=== PATIENT | male | born 1930 | race Caucasian/White ===

== ENCOUNTER 2019-03-18 01:30 | Inpatient (IN) | payer MEDICARE, MEDICAID ==
[~2019-03-18] VITALS: Ht 172.7 cm; Wt 65.8 kg
[~2019-03-18 01:30] MED LIST: MECL-109 PO; METO100T16 PO
[2019-03-18] MEDS ORDERED: SODIUM CHLORIDE 0.9% 1,000 ML IV ONE (02:26)
[2019-03-18] MEDS ORDERED: ONDANSETRON 4MG ODT PO ONE (02:30)
[2019-03-18 02:48] LABS: CLARITY URINE CLEAR (CLEAR); COLOR URINE YELLOW (YELLOW); KETONES URINE NEGATIVE (NEGATIVE); LEUKOCYTE ESTERASE URINE NEGATIVE (NEGATIVE); NITRITE URINE NEGATIVE (NEGATIVE); OCCULT BLOOD URINE NEGATIVE (NEGATIVE); PH URINE 7.5 (4.5-8.0); PROTEIN URINE NEGATIVE (NEGATIVE); SPECIFIC GRAVITY URINE 1.009 (1.005-1.030); UROBILINOGEN URINE 0.2 E.U./dL (0.2-1.0)
[2019-03-18 02:48] LABS: BASOPHILS % 0.2 % (0.0-2.0); EOSINOPHILS % 0.4 % (0.0-5.0); HEMATOCRIT. 31.2 % (42.0-52.0); LYMPHOCYTES % 18.9 % (20.0-50.0); MEAN CORPUSCULAR HEMOGLOBIN 36.4 pg (28.0-32.0); MEAN CORPUSCULAR VOLUME 103.4 fL (80.0-94.0); MEAN PLATELET VOLUME 8.9 fl (7.4-10.4); MONOCYTES % 12.3 % (2.0-8.0); NEUTROPHILS % 68.2 % (40.0-76.0); PLATELET 117 x1000/uL (130-400); RED BLOOD CELL COUNT 3.02 mill/uL (4.7-6.1); RED CELL DISTRIBUTION WIDTH 15.7 % (11.6-14.6)
[2019-03-18 02:53] LABS: CHLORIDE 101 mEq/L (98-107)
[2019-03-18] MEDS ORDERED: AZITHROMYCIN 500 MG in DEXT 5% WATER 250 ML IV NR (04:15)
[2019-03-18] MEDS ORDERED: CEFTRIAXONE 1 G PREMIX 50 ML IV NR (04:15)
[2019-03-18] MEDS ORDERED: ACETAMINOPHEN 325MG TABLET PO PRN (07:00)
[2019-03-18] MEDS ORDERED: NA PHOS,M-B/NA PHOS,DI-BA ENEMA 118ML PR PRN (07:00)
[2019-03-18] MEDS ORDERED: GUAIFENESIN 200MG/10ML SUGAR FREE UDC PO PRN (07:00)
[2019-03-18] MEDS ORDERED: ONDANSETRON HCL 4MG/2ML INJ IV PRN (07:00)
[2019-03-18] MEDS ORDERED: MAGNESIUM/ALUMINUM HYDROXIDE/SIMETHICONE 30ML UDC PO PRN (07:00)
[2019-03-18] MEDS ORDERED: LORAZEPAM 2MG/ML CPJ IV PRN (07:00)
[2019-03-18] MEDS ORDERED: CLONIDINE 0.1MG TABLET PO PRN (07:00)
[2019-03-18 08:40] VITALS: BP 148/45
[2019-03-18 09:42] VITALS: BP 148/45
[2019-03-18 12:00] VITALS: BP 161/51
[2019-03-18] MEDS: SODIUM CHLORIDE 0.45% 1,000 ML IV SCH (13:06)
[2019-03-18] MEDS: LEVOFLOXACIN 500MG PREMIX 100 ML IV SCH (13:07)
[2019-03-18] MEDS ORDERED: DEXTROSE 50% WATER 50ML SYRINGE IV PRN (15:15)
[2019-03-18 15:51] VITALS: BP 159/49
[2019-03-18] MEDS ORDERED: FOLI-43 MT (16:01)
[2019-03-18] MEDS ORDERED: REPA1TAB5 MT (16:01)
[2019-03-18] MEDS ORDERED: ROSU5TAB MT (16:01)
[2019-03-18] MEDS ORDERED: LINA5TAB MT (16:05)
[2019-03-18] MEDS ORDERED: TAMS-11 MT (16:05)
[2019-03-18] MEDS ORDERED: ASPI-1079 PO (16:05)
[2019-03-18] MEDS ORDERED: DIGO125T82 MT (16:05)
[2019-03-18] MEDS ORDERED: AMI2 MT (16:05)
[2019-03-18] MEDS ORDERED: MECL-127 MT (16:05)
[2019-03-18] MEDS: HYDROCODONE/ACETAMINOPHEN 5/325MG TABLET PO PRN ×2 (16:11→20:14)
[2019-03-18] MEDS: INSULIN LISPRO 100 UNITS/ML SUBCUT SCH ×2 (17:18→21:00)
[2019-03-18] MEDS: BLOOD SUGAR DIAGNOSTIC STRIP TEST SCH ×2 (17:18→21:00)
[2019-03-18 20:00] VITALS: BP 143/52
[2019-03-19] VITALS: BP 138/70
[2019-03-19 04:00] VITALS: BP 142/45
[2019-03-19] MEDS: HYDROCODONE/ACETAMINOPHEN 5/325MG TABLET PO PRN ×3 (05:42→17:07)
[2019-03-19] MEDS: SODIUM CHLORIDE 0.45% 1,000 ML IV SCH ×2 (05:42→21:04)
[2019-03-19 06:02] LABS: CHLORIDE 106 mEq/L (98-107)
[2019-03-19] MEDS: INSULIN LISPRO 100 UNITS/ML SUBCUT SCH ×4 (07:24→21:00)
[2019-03-19] MEDS: BLOOD SUGAR DIAGNOSTIC STRIP TEST SCH ×4 (07:24→20:46)
[2019-03-19 08:00] VITALS: BP 117/57
[2019-03-19 08:39] LABS: BASOPHILS % 0.7 % (0.0-2.0); EOSINOPHILS % 1.7 % (0.0-5.0); HEMATOCRIT. 29.1 % (42.0-52.0); LYMPHOCYTES % 21.1 % (20.0-50.0); MEAN CORPUSCULAR HEMOGLOBIN 35.3 pg (28.0-32.0); MEAN CORPUSCULAR VOLUME 102.3 fL (80.0-94.0); MONOCYTES % 11.8 % (2.0-8.0); NEUTROPHILS % 64.7 % (40.0-76.0); PLATELET 105 x1000/uL (130-400); RED BLOOD CELL COUNT 2.84 mill/uL (4.7-6.1); RED CELL DISTRIBUTION WIDTH 15.4 % (11.6-14.6)
[2019-03-19] MEDS: LEVOFLOXACIN 500MG PREMIX 100 ML IV SCH (09:32)
[2019-03-19 12:00] VITALS: BP 144/59
[2019-03-19 16:00] VITALS: BP 139/48
[2019-03-19 20:00] VITALS: BP 164/51
[2019-03-20] VITALS (7 sets, daily range): BP systolic 121–149; BP diastolic 38–95
[2019-03-20] MEDS: BLOOD SUGAR DIAGNOSTIC STRIP TEST SCH ×4 (05:33→21:00)
[2019-03-20] MEDS: INSULIN LISPRO 100 UNITS/ML SUBCUT SCH ×4 (05:35→21:00)
[2019-03-20] MEDS: HYDROCODONE/ACETAMINOPHEN 5/325MG TABLET PO PRN ×3 (05:36→19:32)
[2019-03-20] MEDS: LEVOFLOXACIN 250MG PREMIX 50 ML IV SCH (10:43)
[2019-03-20] MEDS: SODIUM CHLORIDE 0.45% 1,000 ML IV SCH (10:43)
[2019-03-20] MEDS: DOCUSATE SODIUM 100MG CAPSULE PO PRN (13:29)
[2019-03-21] VITALS: BP 142/50
[2019-03-21] MEDS: SODIUM CHLORIDE 0.45% 1,000 ML IV SCH (03:40)
[2019-03-21 04:00] VITALS: BP 139/45
[2019-03-21] MEDS: HYDROCODONE/ACETAMINOPHEN 5/325MG TABLET PO PRN ×2 (04:51→18:52)
[2019-03-21] MEDS: BLOOD SUGAR DIAGNOSTIC STRIP TEST SCH ×4 (05:42→20:43)
[2019-03-21] MEDS: INSULIN LISPRO 100 UNITS/ML SUBCUT SCH ×4 (06:25→20:43)
[2019-03-21 08:00] VITALS: BP 137/50
[2019-03-21] MEDS: LEVOFLOXACIN 250MG PREMIX 50 ML IV SCH (10:22)
[2019-03-21] MEDS: DOCUSATE SODIUM 100MG CAPSULE PO PRN ×2 (10:22→18:52)
[2019-03-21 12:00] VITALS: BP 142/46
[2019-03-21 16:21] VITALS: BP 146/47
[2019-03-21 20:00] VITALS: BP 152/50
[2019-03-22] VITALS: BP 147/50
[2019-03-22 04:00] VITALS: BP 131/46
[2019-03-22] MEDS: BLOOD SUGAR DIAGNOSTIC STRIP TEST SCH ×4 (05:53→20:36)
[2019-03-22] MEDS: INSULIN LISPRO 100 UNITS/ML SUBCUT SCH ×4 (05:58→20:36)
[2019-03-22] MEDS: SODIUM CHLORIDE 0.45% 1,000 ML IV SCH ×2 (05:58→20:26)
[2019-03-22 08:00] VITALS: BP 141/45
[2019-03-22] MEDS: HYDROCODONE/ACETAMINOPHEN 5/325MG TABLET PO PRN ×2 (08:43→15:32)
[2019-03-22] MEDS: LEVOFLOXACIN 250MG TABLET PO SCH (10:06)
[2019-03-22] MEDS: DOCUSATE SODIUM 100MG CAPSULE PO PRN (10:45)
[2019-03-22] MEDS ORDERED: MAGNESIUM HYDROXIDE 400MG/5ML 30ML UDC PO PRN (11:30)
[2019-03-22 12:00] VITALS: BP 161/48
[2019-03-22] MEDS ORDERED: LACTULOSE 20G/30ML UDC PO NR (12:00)
[2019-03-22 16:00] VITALS: BP 156/50
[2019-03-22 19:32] VITALS: BP 148/49
[2019-03-23 00:30] VITALS: BP 146/55
[2019-03-23 03:59] VITALS: BP 129/45
[2019-03-23] MEDS: BLOOD SUGAR DIAGNOSTIC STRIP TEST SCH ×2 (05:00→12:20)
[2019-03-23] MEDS: SODIUM CHLORIDE 0.45% 1,000 ML IV SCH (05:03)
[2019-03-23] MEDS: INSULIN LISPRO 100 UNITS/ML SUBCUT SCH ×2 (05:07→12:20)
[2019-03-23 06:00] VITALS: BP 140/59
[2019-03-23 08:00] VITALS: BP 143/50
[2019-03-23] MEDS ORDERED: HYDROCODONE/ACETAMINOPHEN 5/325MG TABLET PO PRN (10:00)
[2019-03-23] MEDS: LEVOFLOXACIN 250MG TABLET PO SCH (10:16)
[2019-03-23 12:00] VITALS: BP 120/49
[2019-03-23 15:06] VITALS: BP 120/49
== END 2019-03-23 15:50 | DRG 552 ==
LOC: ER 01:30 → 8WST 04:48 → EDBEDREQTM 04:51 → EDBEDREQ 04:51 → ENRESERV 06:57 → 8WST 09:04
PROVIDERS: ADMIT Hospitalist; ATTEND Hospitalist
DX: S32.049A Unspecified fracture of fourth lumbar vertebra, initial encounter for closed fracture (principal); E44.1 Mild protein-calorie malnutrition; E87.1 Hypo-osmolality and hyponatremia; N39.0 Urinary tract infection, site not specified; E11.9 Type 2 diabetes mellitus without complications; I10 Essential (primary) hypertension; R29.6 Repeated falls; B95.5 Unspecified streptococcus as the cause of diseases classified elsewhere; K59.00 Constipation, unspecified; W18.30XA Fall on same level, unspecified, initial encounter; Y93.89 Activity, other specified; Y92.098 Other place in other non-institutional residence as the place of occurrence of the external cause; Z95.0 Presence of cardiac pacemaker; Z68.22 Body mass index [BMI] 22.0-22.9, adult; Y99.8 Other external cause status
CPT/HCPCS: 36415; 71045; 72128; 72131; 72192; 82962; 83605; 84484; 87077; 87186; 93005; 93970; 96361; 96365; 96367; 97110; 97162; 97167; 97530; 97535; 97760; 99285; J0456; J0696; J1956; J7030; J7042; J7060; Q0162

== ENCOUNTER 2019-03-23 16:00 | Inpatient (IN) | payer MEDICARE, MEDICAID ==
[~2019-03-23] VITALS: Ht 172.7 cm; Wt 65.8 kg
[~2019-03-23 16:00] MED LIST changes: +AMI2 MT; +ASPI-1079 PO; +DIGO125T82 MT; +FOLI-43 MT; +LINA5TAB MT; +REPA1TAB5 MT; +ROSU5TAB MT; +TAMS-11 MT
[2019-03-23] MEDS ORDERED: MAGNESIUM/ALUMINUM HYDROXIDE/SIMETHICONE 30ML UDC PO PRN (16:30)
[2019-03-23] MEDS ORDERED: DEXTROSE 50% WATER 50ML SYRINGE IV PRN (16:30)
[2019-03-23] MEDS ORDERED: CLONIDINE 0.1MG TABLET PO PRN (16:30)
[2019-03-23] MEDS ORDERED: ACETAMINOPHEN 325MG TABLET PO PRN (16:30)
[2019-03-23] MEDS ORDERED: MAGNESIUM HYDROXIDE 400MG/5ML 30ML UDC PO PRN (16:30)
[2019-03-23] MEDS ORDERED: ONDANSETRON HCL 4MG/2ML INJ IV PRN (16:30)
[2019-03-23] MEDS ORDERED: SODIUM CHLORIDE 0.9% 1,000 ML IV SCH (16:30)
[2019-03-23] MEDS ORDERED: NA PHOS,M-B/NA PHOS,DI-BA ENEMA 118ML PR PRN (16:30)
[2019-03-23] MEDS: INSULIN LISPRO 100 UNITS/ML SUBCUT SCH ×2 (17:00→21:56)
[2019-03-23] MEDS: HYDROCODONE/ACETAMINOPHEN 5/325MG TABLET PO PRN (17:37)
[2019-03-23] MEDS: BLOOD SUGAR DIAGNOSTIC STRIP TEST SCH ×2 (17:38→20:22)
[2019-03-23 18:05] VITALS: BP 135/60
[2019-03-23 20:00] VITALS: BP 120/66
[2019-03-23] MEDS: SODIUM CHLORIDE 0.45% 1,000 ML IV SCH (20:22)
[2019-03-24] MEDS: INSULIN LISPRO 100 UNITS/ML SUBCUT SCH ×4 (06:10→20:32)
[2019-03-24] MEDS: BLOOD SUGAR DIAGNOSTIC STRIP TEST SCH ×4 (06:10→20:32)
[2019-03-24] MEDS: HYDROCODONE/ACETAMINOPHEN 5/325MG TABLET PO PRN ×2 (06:14→09:57)
[2019-03-24 08:00] VITALS: BP 148/86
[2019-03-24] MEDS: LEVOFLOXACIN 250MG TABLET PO SCH (11:27)
[2019-03-24] MEDS ORDERED: BISACODYL 5MG TABLET PO PRN (14:00)
[2019-03-24 14:20] VITALS: BP 137/51
[2019-03-24] MEDS: HYDROCODONE/ACETAMINOPHEN 10/325MG TABLET PO PRN (14:26)
[2019-03-24] MEDS: SODIUM CHLORIDE 0.45% 1,000 ML IV SCH (17:22)
[2019-03-24 20:00] VITALS: BP 118/44
[2019-03-25] MEDS: BLOOD SUGAR DIAGNOSTIC STRIP TEST SCH ×4 (06:02→21:37)
[2019-03-25] MEDS: HYDROCODONE/ACETAMINOPHEN 5/325MG TABLET PO PRN (06:02)
[2019-03-25] MEDS: SODIUM CHLORIDE 0.45% 1,000 ML IV SCH (06:03)
[2019-03-25] MEDS: GUAIFENESIN 200MG/10ML SUGAR FREE UDC PO PRN ×2 (06:07→21:40)
[2019-03-25] MEDS: INSULIN LISPRO 100 UNITS/ML SUBCUT SCH ×4 (06:09→21:00)
[2019-03-25 07:00] VITALS: BP 115/47
[2019-03-25] MEDS: HYDROCODONE/ACETAMINOPHEN 10/325MG TABLET PO PRN ×2 (08:29→16:19)
[2019-03-25] MEDS: LEVOFLOXACIN 250MG TABLET PO SCH (11:01)
[2019-03-25 20:00] VITALS: BP 116/80
[2019-03-25] MEDS: METOPROLOL TARTRATE 25MG TABLET PO SCH (21:37)
[2019-03-26] MEDS: GUAIFENESIN 200MG/10ML SUGAR FREE UDC PO PRN (06:47)
[2019-03-26] MEDS: BLOOD SUGAR DIAGNOSTIC STRIP TEST SCH ×4 (06:47→20:13)
[2019-03-26] MEDS: INSULIN LISPRO 100 UNITS/ML SUBCUT SCH ×4 (06:47→20:13)
[2019-03-26 08:00] VITALS: BP 142/51
[2019-03-26] MEDS: HYDROCODONE/ACETAMINOPHEN 5/325MG TABLET PO PRN (09:10)
[2019-03-26] MEDS: METOPROLOL TARTRATE 25MG TABLET PO SCH ×2 (09:10→20:13)
[2019-03-26 20:00] VITALS: BP 133/48
[2019-03-27 05:50] LABS: CHLORIDE 103 mEq/L (98-107)
[2019-03-27] MEDS: BLOOD SUGAR DIAGNOSTIC STRIP TEST SCH ×4 (06:36→20:16)
[2019-03-27] MEDS: GUAIFENESIN 200MG/10ML SUGAR FREE UDC PO PRN (06:37)
[2019-03-27] MEDS: HYDROCODONE/ACETAMINOPHEN 5/325MG TABLET PO PRN ×2 (06:42→11:10)
[2019-03-27 07:35] LABS: BASOPHILS % 2.6 % (0.0-2.0); EOSINOPHILS % 2.1 % (0.0-5.0); HEMATOCRIT. 30.7 % (42.0-52.0); HEMOGLOBIN. 10.7 g/dL (14.0-18.0); LYMPHOCYTES % 26.1 % (20.0-50.0); MEAN CORPUSCULAR VOLUME 100.6 fL (80.0-94.0); MEAN PLATELET VOLUME 8.4 fl (7.4-10.4); MONOCYTES % 13.7 % (2.0-8.0); NEUTROPHILS % 55.5 % (40.0-76.0); PLATELET 172 x1000/uL (130-400); RED BLOOD CELL COUNT 3.05 mill/uL (4.7-6.1); RED CELL DISTRIBUTION WIDTH 15.7 % (11.6-14.6)
[2019-03-27 07:45] VITALS: BP 139/50
[2019-03-27] MEDS: INSULIN LISPRO 100 UNITS/ML SUBCUT SCH ×4 (08:12→20:16)
[2019-03-27] MEDS: METOPROLOL TARTRATE 25MG TABLET PO SCH ×2 (08:18→20:16)
[2019-03-27] MEDS: ENOXAPARIN 40MG/0.4ML SYR SUBCUT SCH (11:13)
[2019-03-27] MEDS: DOCUSATE SODIUM 100MG CAPSULE PO PRN (12:55)
[2019-03-27 20:00] VITALS: BP 147/58
[2019-03-28] MEDS: GUAIFENESIN 200MG/10ML SUGAR FREE UDC PO PRN (03:32)
[2019-03-28] MEDS: INSULIN LISPRO 100 UNITS/ML SUBCUT SCH ×4 (06:05→21:00)
[2019-03-28] MEDS: BLOOD SUGAR DIAGNOSTIC STRIP TEST SCH ×4 (06:05→21:19)
[2019-03-28 08:01] VITALS: BP 138/56
[2019-03-28] MEDS: METOPROLOL TARTRATE 25MG TABLET PO SCH ×2 (08:20→22:22)
[2019-03-28] MEDS: ENOXAPARIN 40MG/0.4ML SYR SUBCUT SCH (08:20)
[2019-03-28 20:00] VITALS: BP 139/55
[2019-03-28] MEDS: HYDROCODONE/ACETAMINOPHEN 5/325MG TABLET PO PRN (21:13)
[2019-03-29] MEDS: BLOOD SUGAR DIAGNOSTIC STRIP TEST SCH ×4 (06:28→21:22)
[2019-03-29] MEDS: INSULIN LISPRO 100 UNITS/ML SUBCUT SCH ×4 (06:29→21:00)
[2019-03-29 07:00] VITALS: BP 123/51
[2019-03-29] MEDS: DOCUSATE SODIUM 100MG CAPSULE PO PRN (08:19)
[2019-03-29] MEDS: METOPROLOL TARTRATE 25MG TABLET PO SCH ×2 (08:19→21:23)
[2019-03-29] MEDS: HYDROCODONE/ACETAMINOPHEN 10/325MG TABLET PO PRN ×2 (08:19→13:42)
[2019-03-29] MEDS: ENOXAPARIN 40MG/0.4ML SYR SUBCUT SCH (08:20)
[2019-03-29] MEDS ORDERED: HYDROCODONE/ACETAMINOPHEN 10/325MG TABLET PO PRN (15:00)
[2019-03-29 20:00] VITALS: BP 121/51
[2019-03-30] MEDS: HYDROCODONE/ACETAMINOPHEN 5/325MG TABLET PO PRN (03:52)
[2019-03-30] MEDS: BLOOD SUGAR DIAGNOSTIC STRIP TEST SCH ×4 (06:07→21:00)
[2019-03-30] MEDS: INSULIN LISPRO 100 UNITS/ML SUBCUT SCH ×4 (06:53→21:00)
[2019-03-30 08:09] VITALS: BP 116/49
[2019-03-30] MEDS: ENOXAPARIN 40MG/0.4ML SYR SUBCUT SCH (10:09)
[2019-03-30] MEDS: METOPROLOL TARTRATE 25MG TABLET PO SCH ×2 (10:09→21:00)
[2019-03-30 20:00] VITALS: BP 114/52
[2019-03-31] MEDS: BLOOD SUGAR DIAGNOSTIC STRIP TEST SCH ×4 (06:31→21:32)
[2019-03-31] MEDS: INSULIN LISPRO 100 UNITS/ML SUBCUT SCH ×4 (06:31→21:00)
[2019-03-31] MEDS: HYDROCODONE/ACETAMINOPHEN 5/325MG TABLET PO PRN ×2 (06:43→14:31)
[2019-03-31 08:00] VITALS: BP 113/51
[2019-03-31] MEDS: ENOXAPARIN 40MG/0.4ML SYR SUBCUT SCH (08:22)
[2019-03-31] MEDS: METOPROLOL TARTRATE 25MG TABLET PO SCH ×2 (09:00→21:25)
[2019-03-31] MEDS ORDERED: LACTULOSE 20G/30ML UDC PO PRN (15:00)
[2019-03-31 20:00] VITALS: BP 124/53
[2019-04-01] MEDS: INSULIN LISPRO 100 UNITS/ML SUBCUT SCH ×4 (06:15→20:41)
[2019-04-01] MEDS: BLOOD SUGAR DIAGNOSTIC STRIP TEST SCH ×4 (06:15→20:37)
[2019-04-01 07:22] LABS: BASOPHILS % 0.5 % (0.0-2.0); EOSINOPHILS % 1.4 % (0.0-5.0); LYMPHOCYTES % 26.2 % (20.0-50.0); MEAN CORPUSCULAR HEMOGLOBIN 36.2 pg (28.0-32.0); MEAN CORPUSCULAR VOLUME 102.1 fL (80.0-94.0); MEAN PLATELET VOLUME 8.2 fl (7.4-10.4); MONOCYTES % 11.7 % (2.0-8.0); NEUTROPHILS % 60.2 % (40.0-76.0); PLATELET 226 x1000/uL (130-400); RED BLOOD CELL COUNT 3.04 mill/uL (4.7-6.1); RED CELL DISTRIBUTION WIDTH 15.5 % (11.6-14.6)
[2019-04-01 08:00] VITALS: BP 117/51
[2019-04-01] MEDS: ENOXAPARIN 40MG/0.4ML SYR SUBCUT SCH (08:26)
[2019-04-01] MEDS: HYDROCODONE/ACETAMINOPHEN 5/325MG TABLET PO PRN (08:26)
[2019-04-01] MEDS: METOPROLOL TARTRATE 25MG TABLET PO SCH ×2 (09:00→20:37)
[2019-04-01] MEDS: DOCUSATE SODIUM 100MG CAPSULE PO SCH (17:57)
[2019-04-01 20:00] VITALS: BP 115/51
[2019-04-02] MEDS: BLOOD SUGAR DIAGNOSTIC STRIP TEST SCH ×2 (06:12→11:03)
[2019-04-02] MEDS: INSULIN LISPRO 100 UNITS/ML SUBCUT SCH ×2 (06:12→12:09)
[2019-04-02] MEDS: HYDROCODONE/ACETAMINOPHEN 5/325MG TABLET PO PRN (06:13)
[2019-04-02 07:53] VITALS: BP 116/48
[2019-04-02] MEDS: METOPROLOL TARTRATE 25MG TABLET PO SCH (08:19)
[2019-04-02] MEDS: DOCUSATE SODIUM 100MG CAPSULE PO SCH ×2 (08:19→12:09)
[2019-04-02] MEDS: ENOXAPARIN 40MG/0.4ML SYR SUBCUT SCH (08:20)
[2019-04-02 10:26] VITALS: BP 116/48
== END 2019-04-02 15:53 | disposition home health service (06) | DRG 552 ==
PROVIDERS: ADMIT Psychiatry & Neurology Neurology; ATTEND Hospitalist
DX: S32.049A Unspecified fracture of fourth lumbar vertebra, initial encounter for closed fracture (principal); E44.1 Mild protein-calorie malnutrition; I67.82 Cerebral ischemia; J84.9 Interstitial pulmonary disease, unspecified; J98.11 Atelectasis; N39.0 Urinary tract infection, site not specified; E11.51 Type 2 diabetes mellitus with diabetic peripheral angiopathy without gangrene; W18.39XA Other fall on same level, initial encounter; F03.90 Unspecified dementia, unspecified severity, without behavioral disturbance, psychotic disturbance, mood disturbance, and anxiety; I10 Essential (primary) hypertension; F32.9 Major depressive disorder, single episode, unspecified; F41.9 Anxiety disorder, unspecified; H91.90 Unspecified hearing loss, unspecified ear; I25.10 Atherosclerotic heart disease of native coronary artery without angina pectoris; I48.2 Chronic atrial fibrillation; J44.9 Chronic obstructive pulmonary disease, unspecified; K42.9 Umbilical hernia without obstruction or gangrene; M47.816 Spondylosis without myelopathy or radiculopathy, lumbar region; M48.061 Spinal stenosis, lumbar region without neurogenic claudication; R29.6 Repeated falls; R41.89 Other symptoms and signs involving cognitive functions and awareness; Y93.89 Activity, other specified; Y92.89 Other specified places as the place of occurrence of the external cause; Y99.8 Other external cause status; Z86.73 Personal history of transient ischemic attack (TIA), and cerebral infarction without residual deficits; Z86.79 Personal history of other diseases of the circulatory system; Z91.81 History of falling; Z95.0 Presence of cardiac pacemaker; Z79.899 Other long term (current) drug therapy; Z79.82 Long term (current) use of aspirin; Z68.22 Body mass index [BMI] 22.0-22.9, adult
CPT/HCPCS: 36415; 80048; 82962; 84153; 92523; 97110; 97116; 97162; 97167; 97530; 97535; J1650; J1815; G0103